=== PATIENT | female | born 1995 | race African-American/Black ===

== ENCOUNTER 2017-06-22 14:41 | Emergency (ER) | payer MEDICAID ==
[~2017-06-22] VITALS: Ht 162.6 cm; Wt 59.9 kg
[2017-06-22 15:04] VITALS: BP 148/85
== END 2017-06-22 18:09 | disposition home or self-care (01) ==
LOC: ER 14:41
DX: O20.0 Threatened abortion (principal); O34.81 Maternal care for other abnormalities of pelvic organs, first trimester; Z3A.01 Less than 8 weeks gestation of pregnancy; O23.41 Unspecified infection of urinary tract in pregnancy, first trimester
CPT/HCPCS: 36415; 76801; 81002; 84702